=== PATIENT | female | born 1955 ===

== ENCOUNTER → 2017-07-16 | Outpatient (REF) ==
[2017-07-16 22:49] LABS: THYROID STIMULATING HORMONE 1.91 uIU/mL (0.465-4.680)
== END ==
LOC: ZLAB.WCH 19:10
PROVIDERS: Family Medicine
DX: Z01.89 Encounter for other specified special examinations (principal)

== ENCOUNTER → 2018-07-13 | Outpatient (REF) | LOC: ZLAB.WCH 16:29 | DX: Z01.89 Encounter for other specified special examinations (principal) ==